=== PATIENT | male | born 1990 | race Caucasian/White ===

== ENCOUNTER 2017-08-21 12:38 | Emergency (ER) | payer OTHER ==
[~2017-08-21] VITALS: Ht 190.5 cm; Wt 78.2 kg
[2017-08-21] MEDS ORDERED: PLEASE ENTER ALLERGIES MC SCH (13:59)
[2017-08-21] MEDS ORDERED: MORPHINE SULFATE 4 MG/ML, 1ML IVPush ONE (14:00)
[2017-08-21] MEDS ORDERED: MORPHINE SULFATE 4 MG/ML, 1ML ONE (14:04)
[2017-08-21 14:10] VITALS: BP 119/59
[2017-08-21] MEDS ORDERED: ONDANSETRON ODT 4 MG ONE (14:21)
[2017-08-21] MEDS ORDERED: ONDANSETRON 2MG/ML, 2ML IVPush ONE (14:30)
[2017-08-21] MEDS ORDERED: ONDANSETRON ODT 4 MG PO ONE (14:30)
== END 2017-08-21 14:57 | disposition home or self-care (01) ==
LOC: ED 14:51
DX: S32.591A Other specified fracture of right pubis, initial encounter for closed fracture (principal); W20.8XXA Other cause of strike by thrown, projected or falling object, initial encounter; Y93.89 Activity, other specified; Y92.89 Other specified places as the place of occurrence of the external cause; Y99.8 Other external cause status
CPT/HCPCS: 73502; 96374; 99284; Q0162

== ENCOUNTER 2018-07-02 14:19 | Emergency (ER) | payer SELFPAY ==
[~2018-07-02] VITALS: Ht 190.5 cm; Wt 73.8 kg
--- NOTE | 2018-07-02 15:19 | NUR ---
TO ROOM FROM LOBBY. NAD.
--- NOTE | 2018-07-02 15:31 | NUR ---
PT PRESENTS TO ED WITH L GROIN PAIN AND SORE THROAT. NAD. RIVERA AT BEDSIDE
[2018-07-02 15:32] VITALS: BP 118/66
[2018-07-02] MEDS ORDERED: DEXAMETHASONE 4 MG/ML, 1ML PO ONE (16:00)
[2018-07-02] MEDS ORDERED: DEXAMETHASONE 4 MG/ML, 5ML ONE (16:03)
== END 2018-07-02 16:23 | disposition home or self-care (01) ==
LOC: ED 15:50
DX: J02.8 Acute pharyngitis due to other specified organisms (principal); R10.2 Pelvic and perineal pain; B97.89 Other viral agents as the cause of diseases classified elsewhere
CPT/HCPCS: 87081; 87880; 99283